=== PATIENT | female | born 2000 | race Caucasian/White ===

== ENCOUNTER 2021-01-07 12:26 | Emergency (ER) | payer OTHER ==
[2021-01-07 13:37] LABS: RAPID STREP SCREEN Negative (Negative)
[2021-01-07] MEDS ORDERED: KETOROLAC 30 MG/ML VIAL IVP STA (13:45)
[2021-01-07] MEDS ORDERED: SODIUM CHLORIDE 0.9% 1,000 ML IV STA (13:45)
[2021-01-07] MEDS ORDERED: AMPICILLIN/SULBACTAM 3 GM in SODIUM CHLORIDE 0.9% MINIBAG 100 ML IV STA (13:46)
[2021-01-07] MEDS ORDERED: DEXAMETHASONE 10 MG/ML VIAL IVP STA (13:46)
--- NOTE | 2021-01-07 13:48 | ED Physician Documentation ---
PD HPI HEENT - Stated complaint Stated Complaint: SWOLLEN TONSILS,SORE THROAT - Chief complaint Chief Complaint: Heent - History obtained from History obtained from: Patient - Additional information Additional information: She has had a sore throat for 9 days, especially bad on the right, she was seen [place] 2 days ago and rapid strep was done and reportedly negative. She has worsened despite that. She may have had a low-grade fever 2 nights ago, but otherwise has been afebrile. Pain now radiates to the right ear. Review of Systems Constitutional: reports: Reviewed and negative Eyes: reports: Reviewed and negative Ears: reports: Ear pain, Reviewed and negative Nose: reports: Reviewed and negative Throat: reports: Sore throat PD PAST MEDICAL HISTORY - Present Medications Home Medications: Ambulatory Orders Medication Instructions Recorded Confirmed Amox/Clav 875/125 [Augmentin] 1 each PO Q12H #20 tablet 01/07/21 predniSONE [Deltasone] 20 mg PO [id number] #21 tab 01/07/21 - Allergies Allergies/Adverse Reactions: Allergies Allergy/AdvReac Type Severity Reaction Status Date / Time No Known Drug Allergies Allergy Verified 01/07/21 12:44 PD ED PE NORMAL - Vitals Vital signs reviewed: Yes - General General: Alert and oriented X 3, No acute distress - HEENT HEENT: PERRL, EOMI, Other (She has moderate trismus able to open to about 3 cm between the incisors. She has severe exudative tonsillitis with some asymmetry with the right being larger than the left. No obvious pointing peritonsillar abscess at this juncture.) - Neuro Neuro: Alert and oriented X 3, Normal speech Results - Vitals Vitals: Vital Signs - 24 hr 01/07/21 12:39 Temperature 37.4 C Heart Rate 118 H Respiratory 18 Rate Blood Pressure 136/77 H O2 Saturation 98 Oxygen O2 Source Room air - Labs Labs: Laboratory Tests 01/07/21 13:00 Group A Strep Rapid Negative PD MEDICAL DECISION MAKING - ED course ED course: 20-year-old woman with early peritonsillar abscess. She is administered IV fluids, Decadron, Unasyn, Toradol here. 20-year-old woman with early peritonsillar abscess not amenable to drainage at this point. Feeling much better after IV fluids and Toradol, Decadron, Unasyn. Departure - Departure Disposition: 01 Home, Self Care Clinical Impression: Peritonsillar abscess Condition: Good Record reviewed to determine appropriate education?: Yes Instructions: ED Peritonsillar Infec Abx No I andD Prescriptions: Amox/Clav 875/125 [Augmentin] 1 each PO Q12H #20 tablet predniSONE [Deltasone] 20 mg PO [id number] #21 tab Comments: As discussed you have an early peritonsillar abscess, it does not look like it needs drainage at this juncture but does need antibiotics, steroids, and close follow-up. On Sunday you should follow-up with the local ENT surgeon, the closest is in [place], the phone number is [phone]. Return for new or worsening symptoms you. You can continue the ibuprofen in addition to the steroids and antibiotics that I am giving you.
[2021-01-07 15:41] VITALS: BP 130/70
== END 2021-01-07 15:41 | disposition home or self-care (01) ==
LOC: ED 12:26
DX: J36 Peritonsillar abscess (principal)
CPT/HCPCS: 87070; 87430; 96365; 96375; 99283